=== PATIENT | male | born 1965 | race Caucasian/White ===

== ENCOUNTER 2016-09-03 12:20 | Emergency (ER) | payer OTHER | END 2016-09-03 14:45 | disposition home or self-care (01) | LOC: ER 12:20 | DX: S82.432A Displaced oblique fracture of shaft of left fibula, initial encounter for closed fracture (principal); W19.XXXA Unspecified fall, initial encounter; Y92.009 Unspecified place in unspecified non-institutional (private) residence as the place of occurrence of the external cause | CPT/HCPCS: 29515; 73610; 73630; 99070; 99283-25 ==